=== PATIENT | female | born 1970 | race African-American/Black ===

== ENCOUNTER 2017-11-08 16:17 | Emergency (ER) | payer BC ==
--- NOTE | 2017-11-08 17:14 | ER Document Report ---
ED Medical Screen (RME) - General Chief Complaint: Swelling of Lower Extremity Stated Complaint: LEG PAIN Time Seen by Provider: 11/08/17 17:04 Notes: 47-year-old female patient complaining of pain to the right medial knee and thigh for a few weeks and getting worse. She feels like she cannot sit still and needs to elevate the leg all the time. She reports she did have DVT in the right leg greater than 10 years ago, she is not certain when and who her doctor was that took care of her that time. Brief exam shows the calf to be soft, most tender medially, tender in the medial knee, very tender in the medial thigh along the course of the greater saphenous vein. D-dimer will be done prior to ordering venous Doppler. I have greeted and performed a rapid initial assessment of this patient. A comprehensive ED assessment and evaluation of the patient, analysis of test results and completion of the medical decision making process will be conducted by additional ED providers. TRAVEL OUTSIDE OF THE [place] IN LAST 30 DAYS: No - Related Data Allergies/Adverse Reactions: Penicillins Allergy (Verified 11/08/17 17:04) Past Medical History - Social History Chew tobacco use (# tins/day): No Frequency of alcohol use: None Drug Abuse: None - Past Medical History Cardiac Medical History: Reports: Hx Hypertension Pulmonary Medical History: Reports: Hx Asthma Renal/ Medical History: Denies: Hx Peritoneal Dialysis GI Medical History: Reports: Hx Gastroesophageal Reflux Disease Psychiatric Medical History: Denies: Hx Depression Past Surgical History: Reports: Hx Hysterectomy - partial - Immunizations Hx Diphtheria, Pertussis, Tetanus Vaccination: Yes Physical Exam - Vital signs Vitals: Temp Pulse Resp BP Pulse Ox 98.7 F 85 20 133/90 H 99 11/08/17 16:47 11/08/17 16:47 11/08/17 16:47 11/08/17 16:47 11/08/17 16:47 Course - Vital Signs Vital signs: Temp Pulse Resp BP Pulse Ox 98.7 F 85 20 133/90 H 99 11/08/17 16:47 11/08/17 16:47 11/08/17 16:47 11/08/17 16:47 11/08/17 16:47
[2017-11-08 18:09] LABS: ABSOLUTE EOSINOPHILS # (AUTO) 0.1 10^3/uL (0.0-0.6); ABSOLUTE LYMPHOCYTES (AUTO) 3.2 10^3/uL (0.5-4.7); ABSOLUTE MONOCYTES (AUTO) 0.6 10^3/uL (0.1-1.4); ABSOLUTE NEUT (AUTO) 5.8 10^3/uL (1.7-8.2); BASOPHILS % (AUTO) 0.2 % (0-2); EOSINOPHILS % (AUTO) 0.7 % (0-6); HEMATOCRIT 36.5 % (36.0-47.0); HEMOGLOBIN 12.5 g/dL (12.0-15.5); LYMPHOCYTES % (AUTO) 32.6 % (13-45); MEAN CORPUSCULAR HEMOGLOBIN 30.7 pg (27.0-33.4); MEAN CORPUSCULAR HGB CONC 34.1 g/dL (32.0-36.0); MEAN CORPUSCULAR VOLUME 90 fl (80-97); MONOCYTES % (AUTO) 6.2 % (3-13); PLATELET COUNT 351 10^3/uL (150-450); RED BLOOD COUNT 4.06 10^6/uL (3.72-5.28); RED CELL DISTRIBUTION WIDTH 14.8 % (11.5-14.0); SEGMENTED NEUTROPHILS % (AUTO) 60.3 % (42-78); TOTAL CELLS COUNTED % (AUTO) 100 %; WHITE BLOOD COUNT 9.7 10^3/uL (4.0-10.5)
[2017-11-08 18:25] LABS: ALANINE AMINOTRANSFERASE 16 U/L (9-52); ALKALINE PHOSPHATASE 66 U/L (38-126); ANION GAP 11 (5-19); ASPARTATE AMINO TRANSFERASE 13 U/L (14-36); BILIRUBIN,DIRECT 0.2 mg/dL (0.0-0.4); BILIRUBIN,TOTAL 0.4 mg/dL (0.2-1.3); BLOOD UREA NITROGEN 12 mg/dL (7-20); CALCIUM 9.8 mg/dL (8.4-10.2); CARBON DIOXIDE 30 mmol/L (22-30); CHLORIDE 104 mmol/L (98-107); CREATINE KINASE 68 U/L (30-135); GLUCOSE 106 mg/dL (75-110); POTASSIUM 3.5 mmol/L (3.6-5.0); SODIUM 144.5 mmol/L (137-145); TOTAL PROTEIN 7.1 g/dL (6.3-8.2)
[2017-11-08] MEDS ORDERED: MORPHINE SULFATE IR 15 MG TABLET PO ONE (18:40)
[2017-11-08] MEDS ORDERED: ACETAMINOPHEN 325 MG TABLET PO ONE (18:40)
[2017-11-08] MEDS ORDERED: LIDOCAINE 5% (700 MG) TRANSDERMAL ADH..PATCH TP ONE (18:40)
[2017-11-08] MEDS ORDERED: KETOROLAC TROMETHAMINE 60 MG/2 ML SDV IM ONE (18:40)
--- NOTE | 2017-11-08 18:49 | ER Document Report ---
ED General - General Chief Complaint: Swelling of Lower Extremity Stated Complaint: LEG PAIN Time Seen by Provider: 11/08/17 17:04 Notes: Patient is a 47-year-old female with a remote history of DVT as well as hypertension who presents with 2 weeks of right lower extremity pain. Patient states when she was driving from [place] back to [place] she developed this pain. She states that it is a dull, throbbing, constant pain of the hip, thigh and popliteal fossa on the right. She states that it intermittently improves with ibuprofen but never goes away completely. It is worsened by moving the leg or walking. She denies a history of similar pain in the past and does not recall whether or not the DVT she had in the past felt the same. She has not seen her primary doctor regarding today's concerns. She denies any fever or constitutional symptoms. She denies any swelling or erythema to the area. TRAVEL OUTSIDE OF THE [place] IN LAST 30 DAYS: No - Related Data Allergies/Adverse Reactions: Penicillins Allergy (Verified 11/08/17 17:04) Past Medical History - General Information source: Patient - Social History Smoking Status: Never Smoker Chew tobacco use (# tins/day): No Frequency of alcohol use: None Drug Abuse: None Lives with: Spouse/Significant other Family History: Reviewed & Not Pertinent Patient has suicidal ideation: No Patient has homicidal ideation: No - Past Medical History Cardiac Medical History: Reports: Hx Hypertension Pulmonary Medical History: Reports: Hx Asthma Renal/ Medical History: Denies: Hx Peritoneal Dialysis GI Medical History: Reports: Hx Gastroesophageal Reflux Disease Psychiatric Medical History: Denies: Hx Depression Past Surgical History: Reports: Hx Hysterectomy - partial - Immunizations Hx Diphtheria, Pertussis, Tetanus Vaccination: Yes Hx Pneumococcal Vaccination: 12/11/13 Review of Systems - Review of Systems Notes: Constitutional: Negative for fever. HENT: Negative for sore throat. Eyes: Negative for visual changes. Cardiovascular: Negative for chest pain. Respiratory: Negative for shortness of breath. Gastrointestinal: Negative for abdominal pain, vomiting or diarrhea. Genitourinary: Negative for dysuria. Musculoskeletal: Positive for right lower extremity pain Skin: Negative for rash. Neurological: Negative for headaches, weakness or numbness. 10 point ROS negative except as marked above and in HPI. Physical Exam - Vital signs Vitals: Temp Pulse Resp BP Pulse Ox 98.7 F 85 20 133/90 H 99 11/08/17 16:47 11/08/17 16:47 11/08/17 16:47 11/08/17 16:47 11/08/17 16:47 Interpretation: Normal Notes: PHYSICAL EXAMINATION: GENERAL: Well-appearing, well-nourished and in no acute distress. HEAD: Atraumatic, normocephalic. EYES: Pupils equal round and reactive to light, extraocular movements intact, sclera anicteric, conjunctiva are normal. ENT: nares patent, oropharynx clear without exudates. Moist mucous membranes. NECK: Normal range of motion, supple without lymphadenopathy LUNGS: Breath sounds clear to auscultation bilaterally and equal. No wheezes rales or rhonchi. HEART: Regular rate and rhythm without murmurs ABDOMEN: Soft, nontender, normoactive bowel sounds. No guarding, no rebound. No masses appreciated. EXTREMITIES: Normal range of motion, no pitting or edema. No visible swelling, induration or inflammation of any area of the right lower extremity. No pain with axial loading or internal/external check rotation of the hip. Full flexion of the knee to 90. The leg is able to be held in complete extension without difficulty. No cyanosis. NEUROLOGICAL: No focal neurological deficits. Moves all extremities spontaneously and on command. PSYCH: Moderately anxious. SKIN: Warm, Dry, normal turgor, no rashes or lesions noted. Course - Re-evaluation Re-evalutation: 11/08/17 18:41 Patient presents with pain of the almost entire right lower extremity for the past 2 weeks. No visible edema on exam. Full flexion extension of the knee although the patient does report some discomfort with flexion past 45. There is no visible joint effusion to suggest a gouty arthritis or septic arthritis. No traumatic injury to the area to suggest an acute fracture or dislocation. Patient does have a history of DVT in the remote past and given the diffuse nature of her pain this would be a primary concern. Labs obtained in triage are noted to be unremarkable. Will obtain a venous Doppler to further eval for a superficial versus deep venous thrombosis. Alternative considerations would include a musculoskeletal strain or inflammation although the etiology of this is uncertain in the diffuse nature of the patient's pain also makes this seem somewhat unlikely. Will provide analgesia here in the emergency department to control the patient's pain. Will reassess after results of the venous Doppler ultrasound as well as an x-ray of the knee. 11/08/17 20:30 Venous Doppler of the right lower extremity as well as knee x-ray are both unremarkable. No obvious etiology of the patient's pain today and I have explained to her that I am uncertain why she is having this pain although could be musculoskeletal in origin. At this time will discharge with return precautions and follow-up recommendations. Verbal discharge instructions given a the bedside and opportunity for questions given. Medication warnings reviewed. Patient is in agreement with this plan and has verbalized understanding of return precautions and the need for primary care follow-up in the next 24-72 hours. - Vital Signs Vital signs: Temp Pulse Resp BP Pulse Ox 98.4 F 65 14 129/76 H 96 11/08/17 20:53 11/08/17 20:53 11/08/17 20:53 11/08/17 20:53 11/08/17 20:53 - Laboratory Result Diagrams: 11/08/17 17:40 11/08/17 17:40 Laboratory results interpreted by me: 11/08/17 11/08/17 17:40 17:40 RDW 14.8 H Potassium 3.5 L AST 13 L - Diagnostic Test Radiology reviewed: Image reviewed, Reports reviewed Radiology results interpreted by me: 11/08/17 20:30 Right knee x-ray: No acute fracture or dislocation Discharge - Discharge Clinical Impression: Right leg pain Obesity Qualifiers: Obesity type: due to excess calories Obesity classification: unspecified obesity classification Serious obesity comorbidity presence: unspecified whether serious comorbidity present Qualified Code(s): E66.09 - Other obesity due to excess calories Condition: Good Disposition: HOME, SELF-CARE Additional Instructions: Your x-ray does not show any acute fracture today. The ultrasound of your leg is also normal. The exact etiology of her pain is uncertain but may be related to a strain of several of your muscles in your leg. For your pain: Take ibuprofen 600 mg and acetaminophen 1000 mg every 6 hours together as needed for pain. Continue to apply ice to the area is much your able. Please follow-up with your primary care physician if you do not have improving your symptoms in the next 1-2 weeks. Please return immediately if you develop weakness, numbness , spreading redness from the area, or any other symptoms that are concerning to you. Prescriptions: Cyclobenzaprine HCl [Flexeril 10 mg Tablet] 10 mg PO TIDP PRN #15 tab PRN Reason:
--- NOTE | 2017-11-08 19:54 | RADIOLOGY REPORT (SQ) ---
EXAM DESCRIPTION: KNEE RIGHT 3 VIEWS COMPLETED DATE/TIME: 11/08/2017 7:31 pm REASON FOR STUDY: knee pain COMPARISON: None. NUMBER OF VIEWS: Three views. TECHNIQUE: AP, lateral, and sunrise patella radiographic images acquired of the right knee. LIMITATIONS: None. FINDINGS: MINERALIZATION: Normal. BONES: No acute fracture or dislocation. No worrisome bone lesions. No significant osteophytes. JOINT: No effusion. No chondrocalcinosis. OTHER: No other significant finding. IMPRESSION: NEGATIVE STUDY OF THE RIGHT KNEE. NO EXPLANATION FOR PAIN. TECHNICAL DOCUMENTATION: JOB ID: [id number] [employer]- All Rights Reserved Reading location - IP/workstation name: [email or web address]
--- NOTE | 2017-11-08 20:18 | RADIOLOGY REPORT (SQ) ---
EXAM DESCRIPTION: VENOUS UNILATERAL LOWER COMPLETED DATE/TIME: 11/08/2017 8:11 pm REASON FOR STUDY: right leg pain, swelling COMPARISON: None. TECHNIQUE: Dynamic and static rhodes scale and color images acquired of the right leg venous system. S elected spectral images acquired with additional compression and augmentation maneuvers. The contrala teral common femoral vein and saphenofemoral junction were also imaged. Images stored on PACS. LIMITATIONS: None. FINDINGS: COMMON FEMORAL: Normal phasicity, compression and augmentation. No visualized echogenic ma terial on rhodes scale. No defects on color images. FEMORAL: Normal compression and augmentation. No visualized echogenic material on rhodes scale. No defe cts on color images. POPLITEAL: Normal compression, augmentation. No visualized echogenic material on rhodes scale. No defec ts on color images. CALF VESSELS: Normal compression, augmentation. No visualized echogenic material on rhodes scale. No de fects on color images. GSV and SSV: Normal compression, augmentation. No visualized echogenic material on rhodes scale. No def ects on color images. ANY DEEP VENOUS INSUFFICIENCY: Not evaluated. ANY EVIDENCE OF POPLITEAL CYST: No. OTHER: No other significant finding. CONTRALATERAL COMMON FEMORAL VEIN AND SAPHENOFEMORAL JUNCTION: Normal phasicity, compression and augmentation. No visualized echogenic material on rhodes scale. No de fects on color images. IMPRESSION: NO EVIDENCE DVT OR SVT IN THE RIGHT LEG. TECHNICAL DOCUMENTATION: JOB ID: [id number] [employer]- All Rights Reserved Reading location - IP/workstation name: [email or web address]
[2017-11-08 20:54] VITALS: BP 129/76
== END 2017-11-08 20:54 | disposition home or self-care (01) ==
LOC: ER 16:17
DX: M79.604 Pain in right leg (principal); E66.09 Other obesity due to excess calories; M79.89 Other specified soft tissue disorders; Z86.718 Personal history of other venous thrombosis and embolism; I10 Essential (primary) hypertension; J45.909 Unspecified asthma, uncomplicated
CPT/HCPCS: 99284; 96372; 36415; 82550; 85025; 80053; 85379; 93971; 73562; J1885

== ENCOUNTER 2018-11-16 09:38 | Emergency (ER) | payer BC ==
[2018-11-16] MEDS ORDERED: ACETAMINOPHEN 325 MG TABLET PO ONE (10:52)
[2018-11-16] MEDS ORDERED: KETOROLAC TROMETHAMINE 60 MG/2 ML SDV IM ONE (10:52)
--- NOTE | 2018-11-16 11:27 | RADIOLOGY REPORT (SQ) ---
EXAM DESCRIPTION: ANKLE RIGHT COMPLETE COMPLETED DATE/TIME: 11/16/2018 11:20 am REASON FOR STUDY: foot/ankle pain COMPARISON: None. NUMBER OF VIEWS: Three views. TECHNIQUE: AP, lateral, and oblique radiographic images acquired of the right ankle. LIMITATIONS: None. FINDINGS: MINERALIZATION: Normal. BONES: No acute fracture or dislocation. No worrisome bone lesions. JOINTS: No effusions. SOFT TISSUES: No soft tissue swelling. No foreign body. OTHER: No other significant finding. IMPRESSION: NEGATIVE STUDY OF THE RIGHT ANKLE. NO RADIOGRAPHIC EVIDENCE OF ACUTE INJURY. TECHNICAL DOCUMENTATION: JOB ID: [id number] [employer]- All Rights Reserved Reading location - IP/workstation name: [email or web address]
--- NOTE | 2018-11-16 11:28 | RADIOLOGY REPORT (SQ) ---
EXAM DESCRIPTION: FOOT RIGHT COMPLETE COMPLETED DATE/TIME: 11/16/2018 11:20 am REASON FOR STUDY: foot/ankle pain COMPARISON: None. NUMBER OF VIEWS: Three views. TECHNIQUE: AP, lateral and oblique radiographic images acquired of the right foot. LIMITATIONS: None. FINDINGS: MINERALIZATION: Normal. BONES: No acute fracture or dislocation. No worrisome bone lesions. JOINTS: No effusions. SOFT TISSUES: No soft tissue swelling. No foreign body. OTHER: No other significant finding. IMPRESSION: NEGATIVE STUDY OF THE RIGHT FOOT. NO RADIOGRAPHIC EVIDENCE OF ACUTE INJURY. TECHNICAL DOCUMENTATION: JOB ID: [id number] [employer]- All Rights Reserved Reading location - IP/workstation name: [email or web address]
--- NOTE | 2018-11-16 11:41 | ER Document Report ---
HPI - HPI Time Seen by Provider: 11/16/18 10:38 Pain Level: 5 Context: Patient is a 48-year-old female who presents the emergency department with a chief complaint of right foot, ankle, and leg pain. She states that yesterday she was lying in bed and felt a pop sensation in her foot. She is unable to apply pressure to the area. 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 She was started on Cymbalta, but she was unable to take the medication. She is currently on tramadol and her last dose was at 6:00 this morning. 8 days ago she had a DVT work-up here in the emergency department with all negative findings. There was no explanation as to why she had her symptoms. She has history of DVT in the past, but not recently. In her previous visit, it states that she was on a long trip, but has not been on any recent trips since then. Denies any shortness of breath, difficulty breathing, or any other symptoms. - CONSTITUTIONAL Constitutional: DENIES: Fever, Chills - EENT EENT: DENIES: Sore Throat, Ear Pain - NEURO Neurology: DENIES: Headache - CARDIOVASCULAR Cardiovascular: DENIES: Chest pain - RESPIRATORY Respiratory: DENIES: Trouble Breathing, Coughing - REPRODUCTIVE Reproductive: DENIES: : - MUSCULOSKELETAL Musculoskeletal: REPORTS: Extremity pain - Right foot and leg. DENIES: Swelling - DERM Skin Color: Normal Skin Problems: None Past Medical History - Social History Smoking Status: Never Smoker Family History: Reviewed & Not Pertinent - Past Medical History Cardiac Medical History: Reports: Hx Hypertension Pulmonary Medical History: Reports: Hx Asthma Renal/ Medical History: Denies: Hx Peritoneal Dialysis GI Medical History: Reports: Hx Gastroesophageal Reflux Disease Psychiatric Medical History: Denies: Hx Depression Past Surgical History: Reports: Hx Hysterectomy - partial - Immunizations Hx Diphtheria, Pertussis, Tetanus Vaccination: Yes Hx Pneumococcal Vaccination: 12/11/13 Vertical Provider Document - CONSTITUTIONAL Agree With Documented VS: Yes Exam Limitations: No Limitations General Appearance: No Apparent Distress - INFECTION CONTROL TRAVEL OUTSIDE OF THE [place] IN LAST 30 DAYS: No - HEENT HEENT: Atraumatic, Normocephalic, PERRLA - NECK Neck: Normal Inspection - RESPIRATORY Respiratory: Breath Sounds Normal, No Respiratory Distress - CARDIOVASCULAR Cardiovascular: Regular Rate, Regular Rhythm Pulses: Normal: Radial, Posterior tibial, Dorsalis pedis - MUSCULOSKELETAL/EXTREMETIES Musculoskeletal/Extremeties: Tender - Right Achilles tendon area, left foot, No Edema. negative: Eccymosis - NEURO Level of Consciousness: Awake, Alert, Appropriate Motor/Sensory: No Motor Deficit, No Sensory Deficit - DERM Integumentary: Warm, Dry, No Rash Course - Re-evaluation Re-evalutation: 11/16/18 The patient's x-rays are negative at this time. I have very low suspicion for DVT, as the patient does have pain in her Achilles tendon area primarily. She was seen recently for a DVT work-up, and there is no findings. I suspect that she has some neuropathy. She will be provided crutches and follow-up with her primary care provider. She also received an Erasmo wrap here in the emergency department. I will also give her some Toradol. I have instructed her to continue taking her tramadol as needed. She is in agreement with this plan. Verbal discharge instructions were given to the patient. They verbalized understanding. They are stable for discharge. - Vital Signs Vital signs: Temp Pulse Resp BP Pulse Ox 98.7 F 86 16 135/97 H 100 11/16/18 09:50 11/16/18 09:50 11/16/18 09:50 11/16/18 09:50 11/16/18 09:50 Discharge - Discharge Clinical Impression: Right foot pain Right ankle pain Qualifiers: Chronicity: acute Qualified Code(s): M25.571 - Pain in right ankle and joints of right foot Condition: Stable Disposition: HOME, SELF-CARE Instructions: Erasmo Wrap ([facility]), Soft Ankle Splint ([facility]) Additional Instructions: You were seen today in the emergency department for right foot and ankle pain. There is no fracture at this time. Please continue to take your tramadol. You have also been prescribed Toradol. You can take 1 tablet every 6 hours as needed for the next few days. Please keep your ankle wrapped as needed in the Erasmo wrap. Use your crutches. Please follow-up with orthopedics in regards to this visit. Please also follow-up with your primary care provider in regards to this visit. Prescriptions: Ketorolac Tromethamine [Toradol 10 mg Tablet] 10 mg PO Q6HP PRN #20 tablet PRN Reason: [facility] [Primary Care Provider] - Follow up as needed KAY ROCK MD [ACTIVE STAFF] - Follow up in 3-5 days
[2018-11-16 11:57] VITALS: BP 134/84
== END 2018-11-16 12:05 | disposition home or self-care (01) ==
LOC: ER 09:38
DX: M79.671 Pain in right foot (principal); M25.571 Pain in right ankle and joints of right foot; Z86.718 Personal history of other venous thrombosis and embolism; I10 Essential (primary) hypertension; J45.909 Unspecified asthma, uncomplicated
CPT/HCPCS: 99283; 96372; 73610; 73630; J1885